=== PATIENT | female | born 1965 | race Asian ===

== ENCOUNTER → 2016-07-21 | Outpatient (CLI) | payer BC ==
--- NOTE | 2016-07-24 12:02 | POLYSOMNOGRAPH REPORT ---
CLINICAL DATA: 51-year-old female with BMI of 41.[address] Hernández and Dr. Mack with hypertension and possible sleep apnea. On the evening of 07/21/2016, a home sleep apnea test was performed using a Powervation type 3 monitor. RECORDING RESULTS: Total recording time was 10 hours. The patient's estimated sleep time and patient monitoring time was 6.9 hours. RESPIRATORY DATA: Mild sleep apnea was documented. The MATEUSZ was 10.9. There were 46 obstructive apneic episodes and 29 hypopneic episodes recorded. The longest respiratory event was 49 seconds. Significant nocturnal hypoxemia was seen. Oxygen greg was 62%. Mean saturation was 96%. Time below 89% was 14 minutes. HEART RATE DATA: Heart rates ranged from 48-68 beats per minute. SNORING DATA: Snoring was recorded throughout the night. BROADCAST OPERATIONS DIRECTOR'S COMMENTS: The patient gave a history of loud snoring and snorting that would awaken her and her at night. Her recorded witnessed apneic episodes lasting 40-50 seconds which were confirmed. She also has fatigue. Her events were clustered primarily in 3 different short episodes, most likely corresponding to REM sleep. IMPRESSION: Mild sleep apnea/hypopnea with an MATEUSZ of 10.9 with severe nocturnal hypoxemia with an oxygen greg as low as 62%. RECOMMENDATIONS: The patient may benefit from a repeat sleep study with CPAP or use of an oral appliance. Clinical correlation is needed. MEGAN
== END | disposition home or self-care (01) ==
LOC: C.NEUR 09:15
PROVIDERS: ATTEND Internal Medicine Pulmonary Disease
DX: G47.30 Sleep apnea, unspecified (principal); R09.02 Hypoxemia

== ENCOUNTER → 2016-08-29 | Outpatient (CLI) | payer BC ==
[2016-08-29 13:26] LABS: THYROID STIMULATING HORMONE 1.14 uIu/ml (0.300-4.500)
[2016-08-29 14:00] LABS: ESTIMATED AVERAGE GLUCOSE 186 mg/dl; HA1C FLAG Normal (Normal)
--- NOTE | 2016-09-05 08:35 | CODING QUERY MEDICAL NECESSITY ---
CQSUPPORTING DIAGNOSIS NEEDED A supporting diagnosis is required for the test/procedure performed on this patient in order for us to be reimbursed by the patient's insurance. Please provide a supporting diagnosis for the following test/procedure listed below next to the test name along with your signature. *If there is no additional diagnosis for this patient that would support the following test/procedure please document that below next to the test/procedure. Test(s)/Procedure(s) that require a supporting diagnosis: DOS 08/29/16 VITAMIN D TEST Provider Signature: Date: Thank you Doris Velez Health Information Management Once completed, please kindly fax back to [phone] For questions please call [phone]
== END | disposition home or self-care (01) ==
LOC: C.LAB1850 11:45
PROVIDERS: ATTEND Family Medicine
DX: E11.65 Type 2 diabetes mellitus with hyperglycemia (principal); N92.6 Irregular menstruation, unspecified; E03.9 Hypothyroidism, unspecified; E11.9 Type 2 diabetes mellitus without complications; E55.9 Vitamin D deficiency, unspecified

== ENCOUNTER → 2016-09-04 | Outpatient (CLI) | payer BC ==
--- NOTE | 2016-09-05 06:38 | PAP/PSG TECHNICIAN REPORT ---
[facility] Furniture Maker Polysomnogram Report Study name: None Report date: 09/05/2016 Study date: 09/04/2016 Referring Physician: El Hernández Pulmonary Name: MORALES BERGMANCristobal Interpreting Physician: Bong Calderon M.D. Date of : 1965 Furniture Maker: Ileana Lopez [facility]. Sex: Female Age: 51 Study Type: PSG PAP Weight: 213 lbs Height: 51 years, Height 5' 0" BMI: 41.59 Medications: ACCU-CHECK SYSTEM, BYSTOLIC 5 MG, HUMALOG KWIKPEN 100 UNI/ML, HUMULIN N KWIKPEN 100 UNIT/ML, LANTUS SOLOSTAR 100 UNIT/ML, LEVOTHYROXINE 50 MCG, MEDROXYPROGESTERONE 10 MG, VIT D3 5000 UNIT Patient History 51 yr-old female here for a new CPAP treatment study. She was found to be positive for GIOVANY via a home sleep study. Her AHI was 14. She chose a Mirage FX Soft edge nasal mask size small from [employer]. The test was started on room air and 4 CMH2O. ETCO2 testing was not utilized during this study. Room 1 Parameters Monitored NPSG: E1-M2, E2-M1, Fp1-M2, Fp2-M1, F3-M2, F4-M2, F4-M1, C3-M2, C4-M2, C4-M1, O1-M2, O2-M2, O2-M1, T3-M2, T4-M1, P3-M2, P4-M1, CHIN1, CHIN2, HR, EKG, Legs, PFLOW, SNOR, FLOW, CFLOW, Tidal Volume, THOR, ABDO, SpO2, PLTH, CPRESS, ETCO2 Wave, ETCO2, pH Sleep Architecture Sleep Stages Time at Lights Off 11:05:22 PM STAGES Time (min.) TST (%) Time at Lights On 5:29:52 AM Wake 26.5 -- Total Recording Time (TRT) 384.50 min. N1 15.5 4 Total Sleep Period (TSP) 371.5 min. N2 211.0 59 Total Sleep Time (TST) 358.0min. N3 47.5 13 Awake Time 26.5 min. REM 84.0 23 Wake after Sleep Onset 13.5 min. Sleep Efficiency (SE) 93 % Sleep Onset Latency (FABIANA) 13.0 min. Number of Stage 1 Shifts None Awakenings 14 Stage Changes 57 Number of REM periods 4 REM 84.0 23 REM Latency 48.0 min. NREM 274.0 77 Body Position Analysis Supine Right Left Side Prone Vertical Total Sleep Time (min.) 130.7 123.0 107.4 230.37 0.0 0.0 Total Sleep Time (%) 36% 34% 30% 64 0% N/A% Total Sleep Time REM (min.) 40.0 17.0 27.0 None 0.0 0.0 Total Sleep Time NREM (min.) 87.6 106.0 80.4 None 0.0 0.0 Intermittent Wake (min.) 3.1 20.3 3.2 None 0.0 0.0 Total Sleep Period (%) 35% None None None None None Arousals Myoclonus (PLM) * Events Count Index Events Count Index Spontaneous 12 2 Events Awake (PLMW) 23 52.1 Respiratory 4 0.8 Events Asleep w/ Arousal (PLMA) 6 1.0 PLM 6 1 Events Asleep w/o Arousal (PLMS) 44 7.4 Snoring 2 0 Total Asleep 50 8.4 Total 24 4 Total 73 11 Respiratory Analysis * CA OA MA CH H RERA Total Count 1 0 0 0 24 4 25 Index 0.2 0.0 0.0 0 4.0 1 4.9 Mean Duration 14.3 0.0 0.0 0.00 16.3 16.0 16.2 Longest Duration 14.3 0.0 0.0 0.00 0.0 16.9 31.4 Respiratory Event Summary Total Supine ~Supine Right Left Prone REM NREM Apneas Count 1 0 1 1 0 N/A 1 0 Index 0.2 0 0 0.5 0.0 N/A 1 0 Hypopneas (4% Desat) Count 24 20 4 2 2 N/A 18 6 Index 4.0 9.4 1 1.0 1.1 N/A 12.9 1.3 Apneas & All Hypopneas Count 25 20 5 3 2 N/A 19 6 Index 4.2 9 1 1 1 N/A 13.6 1.3 Respiratory Events (Hide Splitter+All Hyp+RERA) Count 25 20 9 5 4 N/A 19 6 Index 4.9 9 2 2.4 2.2 N/A 13.6 2.2 Respiratory Related Arousal Count 4 20 5 3 2 N/A 0 5 Index 0.8 0 1 1 1 N/A 0 1 Snoring Analysis Supine Right Left Prone REM NREM Total Snore duration 56.2 min Snores count 767 466 706 N/A 354 1,585 1,939 Snore mean duration 1.7 Sec Snores index 361 227 395 N/A 252.9 347.1 325.0 TST with snoring (%) 15.7% Desaturation Event Summary: Minimum %SpO2 Event Count Mean/Min/Max Duration(sec.) Desaturation Index % Time In Bed > 90 44 24.0 / 5.0 / 59.0 6.9 99.2 86 - 90 0 N/A 0.0 0.7 81 - 85 0 N/A 0.0 0.1 76 - 80 0 N/A 0.0 0.0 71 - 75 0 N/A 0.0 0.0 66 - 70 0 N/A 0.0 0.0 61 - 65 0 N/A 0.0 0.0 56 - 60 0 N/A 0.0 0.0 51 - 55 0 N/A 0.0 0.0 < 50 0 N/A 0.0 0.0 Total REM NREM Awake <50% 0.0 min. 0.0 min. 0.0 min. 0.0 min. 51 - 60% 0.0 min. 0.0 min. 0.0 min. 0.0 min. 61 - 70% 0.0 min. 0.0 min. 0.0 min. 0.0 min. 71 - 80% 0.0 min. 0.0 min. 0.0 min. 0.0 min. 81 - 90% 3.0 min. 2.5 min. 0.4 min. 0.1 min. 91 - 100% 381.5 min. 81.5 min. 273.6 min. 26.4 min. Average 95 95 95 96 Minimum SpO2 81 81 90 90 Desaturation Event Index 6.9 20.7 2.4 9.1 # Desat. Events below 89% 5 5 N/A N/A Time(%) with Saturation below 89% 0.3 0.3 0.0 0.0 Time(min.) with Saturation below 89% 1.1 1.1 0.0 0.0 Time (mins) REM (mins) NREM (mins) % of TST SpO2 Below 90% 12 9 N3 0.4 SpO2 Below 88% 2 0 0 0 Heart Rate Analysis Min (bpm) Max (bpm) Average (bpm) Awake 68 107 90 NREM 63 107 80 REM 58 97 77 Overall 58 107 79 Supplemental O2 Values Minimum O2 level: None Value Start Time End Time Furniture Maker Comments Ms. Bergman slept in the right, left, and supine positions. No cardiac arrhythmias or PLMs noted. No bruxism noted. CPAP was initiated at +4 CMH2O and up-titrated to a level of + CMH2O, Cflex 2. A Mirage FX Soft edge nasal mask size small from [employer] was used during titration She did not wake up to use the restroom during the night. Ms. Bergman stated that she slept a little worse than usual. The final report will be interpreted and signed by a sleep physician. The completed physician report will then be placed in the patient medical record. Therapy Event: Therapy (cm H20) 4 5 6 7 8 Total Time at Pressure (min.) 34.7 100.5 179.9 23.2 46.3 TST at Pressure (min.) 21.2 95.0 176.4 23.2 42.3 # Periods 1 1 1 1 1 Sleep Onset (min.) 13.0 0.0 0.0 0.0 0.0 REM Onset (min.) N/A 26.3 15.8 0.0 0.0 Sleep Efficiency % 61 94 98 100 91 Wakefulness (%) 38.9 5.5 1.9 0.0 8.6 Wakefulness (min.) 13.5 5.5 3.5 0.0 4.0 NREM 1 (%) 7.2 2.0 4.4 0.0 6.5 NREM 1 (min.) 2.5 2.0 8.0 0.0 3.0 NREM 2 (%) 44.6 32.3 70.3 0.0 78.9 NREM 2 (min.) 15.5 32.5 126.5 0.0 36.5 NREM 3 (%) 9.3 43.3 0.4 0.0 0.0 NREM 3 (min.) 3.2 43.5 0.8 0.0 0.0 REM (%) 0.0 16.9 22.8 100.0 6.0 REM (min.) 0.0 17.0 41.1 23.2 2.8 # Arousals 2 6 11 0 5 Arousal Index 5.7 3.8 3.7 0.0 7.1 # Snore 112 718 882 206 21 Snore Index 316.7 453.5 300.1 533.6 29.8 AHI 0.0 1.9 3.7 28.5 0.0 AHI Supine N/A N/A 5.3 28.5 0.0 AHI Non-Supine 0.0 1.9 1.6 N/A 0.0 NREM AHI 0.0 1.5 1.8 N/A 0.0 REM AHI N/A 3.5 10.2 28.5 0.0 RDI 0.0 3.2 4.4 28.5 0.0 # Obstructive 0 0 0 0 0 # Central Ap 0 1 0 0 0 # Mixed 0 0 0 0 0 # Hypopneas 0 2 11 11 0 RERAS 0 2 2 0 0 Total Respiratory Events 0 5 13 11 0 Time Below SpO2 89.00% (min.) 0.0 0.2 0.2 0.7 0.0 Mean NREM SpO2 (%) 95 95 95 N/A 96 Mean REM SpO2 (%) N/A 94 96 94 97 Mean Sleep SpO2 (%) 95 94 95 94 96 Min NREM SpO2 (%) 93 91 90 N/A 90 Min REM SpO2 (%) N/A 81 84 84 96 Position Supine (min.) 0.0 0.0 101.7 23.2 2.8 Position Non-supine (min.) 21.2 95.0 74.7 0.0 39.5 LM Index Sleep 11.3 7.6 4.4 20.7 18.5 LM Index NREM 11.3 7.7 5.8 N/A 19.7 LM Index REM N/A 7.1 0.0 20.7 0.0 Mean Heart Rate (bpm) 84 84 78 73 76 Min Heart Rate (bpm) 73 65 60 58 61
--- NOTE | 2016-09-09 10:22 | POLYSOMNOGRAPH REPORT ---
CLINICAL DATA: A 51-year-old female with BMI of 41.[address] Hernández and Dr. Flaherty for a CPAP titration study. She had mild sleep apnea documented on a home sleep study with an AHI of 14. SLEEP ARCHITECTURE: Total sleep period was 371.5 minutes. Total sleep time was 358 minutes divided between 274 minutes of non-REM sleep and 84 minutes of REM sleep. Sleep onset latency was 13 minutes. REM latency was 48 minutes. Sleep efficiency was 93%. Wake after sleep onset was 13.5 minutes. Sleep consisted of stage N1 4%, N2 59%, N3 13%, REM 23%. AROUSAL DATA: Twenty four arousals were recorded for an index of 4 per hour. PLM DATA: Fifty limb movements during sleep were noted for an index of 8.4 per hour with arousal index of 1 per hour. RESPIRATORY DATA: The AHI was 4.2. There was 1 central apneic episode, 14.3 seconds in duration. There were 24 hypopneic episodes. The mean duration of hypopnea was 16.3 seconds. OXIMETRY DATA: Nocturnal hypoxemia was seen. Oxygen greg was 81% during REM. The mean saturation was 95%. Time below 88% was 2 minutes. EKG: Heart rates ranged from 58-107 beats per minute. No arrhythmias were noted. 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 She was begun on CPAP 4 cm water pressure and was titrated up to a final pressure setting of 8 cm of water pressure. At 8 cm of water pressure, C-Flex 2 the patient slept for 42.3 minutes with an AHI of 0. IMPRESSION: Mild sleep apnea/hypopnea corrected with CPAP 8 cm of water pressure, C-flex setting 2, Mirage FX soft edge nasal mask size small from [employer]. RECOMMENDATIONS: The patient should be started on the above noted treatment regimen and see back in followup within 90 days to document efficacy and compliance. [facility]
== END | disposition home or self-care (01) ==
LOC: C.NEUR 20:00
PROVIDERS: ATTEND Internal Medicine Pulmonary Disease
DX: G47.33 Obstructive sleep apnea (adult) (pediatric) (principal); E66.9 Obesity, unspecified

== ENCOUNTER → 2016-09-15 | Outpatient (CLI) | payer BC ==
[~2016-09-15] VITALS: Ht 152.4 cm; Wt 94.0 kg
[2016-09-15 15:13] VITALS: BP 139/82; PULSE 109; Ht 152.4 cm; Wt 94.0 kg
== END | disposition home or self-care (01) ==
LOC: C.NEUR 14:11
PROVIDERS: ATTEND Physician Assistant
DX: G47.30 Sleep apnea, unspecified (principal)

== ENCOUNTER → 2016-11-25 | Outpatient (CLI) | payer BC | END | disposition home or self-care (01) | LOC: C.PATHSPEC 15:28 | PROVIDERS: ATTEND Obstetrics & Gynecology | DX: N93.9 Abnormal uterine and vaginal bleeding, unspecified (principal) ==

== ENCOUNTER → 2016-12-01 | Outpatient (CLI) | payer BC ==
[~2016-12-01] VITALS: Ht 154.9 cm; Wt 90.1 kg
[2016-12-01 14:47] VITALS: BP 129/82; PULSE 83; Ht 154.9 cm; Wt 90.1 kg
== END | disposition home or self-care (01) ==
LOC: C.NEUR 13:44
PROVIDERS: ATTEND Physician Assistant
DX: G47.33 Obstructive sleep apnea (adult) (pediatric) (principal)

== ENCOUNTER → 2017-01-21 | Outpatient (CLI) | payer BC ==
[2017-01-21 10:58] LABS: HEMATOCRIT 39.7 % (37-47); URINE APPEARANCE CLEAR (CLEAR); URINE BILIRUBIN NEG (NEG); URINE COLOR YELLOW; URINE NITRITE NEG (NEG); URINE SPECIFIC GRAVITY 1.015 (1.000-1.030); UROBILINOGEN NEG (NEG)
[2017-01-21 11:01] LABS: PREG INTERNAL NEGATIVE QC NEG CLEAR BACKGROUND; PREG INTERNAL POSITIVE QC POS CONTROL LINE
[2017-01-21 11:02] LABS: MANUAL MICROSCOPIC REQUIRED? NO; REVIEW REQ? NO
[2017-01-21 11:06] LABS: ESTIMATED AVERAGE GLUCOSE 154 mg/dl; HA1C FLAG Normal (Normal)
[2017-01-21 11:25] LABS: URINE TOTAL PROTEIN < 5.0 mg/dl (0-11.9)
[2017-01-21 11:28] LABS: ALT/SGPT 36 U/L (12-78); AST/SGOT 13 U/L (15-37); BLOOD UREA NITROGEN 7 mg/dl (7-18); BUN/CREATININE RATIO 9.5 (10-20); CALCIUM 9.1 mg/dl (8.5-10.1); CARBON DIOXIDE 30 mmol/L (21-32); CHLORIDE 107 mmol/L (98-107); CREATININE 0.73 mg/dl (0.60-1.20); GLUCOSE 121 mg/dl (70-99); POTASSIUM 4.4 mmol/L (3.5-5.1); SODIUM 139 mmol/L (136-145)
[2017-01-21 11:33] LABS: ALKALINE PHOSPHATASE 74 U/L (45-117); CHOLESTEROL 152 mg/dl (0-200); CHOLESTEROL/HDL RATIO 4.9; HDL CHOLESTEROL 31 mg/dl; LDL CHOLESTEROL CALCULATED 103 mg/dl; PHOSPHORUS 3.7 mg/dl (2.5-4.9); TRIGLYCERIDES 91 mg/dl (0-150); VERY LOW DENSITY LIPOPROT CALC 18 mg/dl
[2017-01-22 20:14] LABS: RAPID PLASMA REAGIN NONREACTIVE (NONREACT)
[2017-01-23 10:40] LABS: QUANTIFERON NIL 0.04 IU/ML
== END | disposition home or self-care (01) ==
LOC: C.RAD1850 08:50
PROVIDERS: ATTEND Nurse Practitioner Adult Health
DX: Z71.89 Other specified counseling (principal); E11.65 Type 2 diabetes mellitus with hyperglycemia; I10 Essential (primary) hypertension; R60.9 Edema, unspecified; R53.83 Other fatigue

== ENCOUNTER → 2017-01-22 | Outpatient (CLI) | payer BC ==
--- NOTE | 2017-01-22 10:02 | DIAGNOSTIC IMAGING REPORT ---
TWO VIEW CHEST CLINICAL HISTORY: Traveling advice encounter. FINDINGS: PA and lateral chest radiographs are compared to study dated 10/27/2013. The cardiomediastinal silhouette is unremarkable. The lungs and pleural spaces are clear. There is no pneumothorax. The bony thorax appears intact. IMPRESSION: No active disease in the chest. Electronically signed by: Yaniv Diane M.D. 01/22/2017 10:00 AM Dictated Date/Time: 01/22/2017 9:58 AM
[2017-02-03 07:34] LABS: O&P SOURCE OTHER-STOOL
== END | disposition home or self-care (01) ==
LOC: C.RAD1850 09:44
PROVIDERS: ATTEND Nurse Practitioner Adult Health
DX: Z71.89 Other specified counseling (principal)

== ENCOUNTER → 2017-02-09 | Outpatient (CLI) | payer BC | END | disposition home or self-care (01) | LOC: C.LAB1850 10:02 | PROVIDERS: ATTEND Nurse Practitioner Adult Health | DX: Z71.89 Other specified counseling (principal); E55.9 Vitamin D deficiency, unspecified ==

== ENCOUNTER → 2018-01-20 | Outpatient (CLI) | payer BC ==
[2018-01-20 15:09] LABS: BLOOD UREA NITROGEN 9 mg/dl (7-18); CALCIUM 9.3 mg/dl (8.5-10.1); CARBON DIOXIDE 25 mmol/L (21-32); CREATININE 0.78 mg/dl (0.60-1.20); GLUCOSE 99 mg/dl (70-99); PHOSPHORUS 3.6 mg/dl (2.5-4.9); POTASSIUM 3.9 mmol/L (3.5-5.1); SODIUM 137 mmol/L (136-145)
[2018-01-21 05:59] LABS: HEMOGLOBIN A1C 7.5 % (4.5-5.6)
== END | disposition home or self-care (01) ==
LOC: C.LAB1850 13:38
PROVIDERS: ATTEND Internal Medicine Nephrology
DX: E03.9 Hypothyroidism, unspecified (principal); E11.9 Type 2 diabetes mellitus without complications; Z79.4 Long term (current) use of insulin

== ENCOUNTER → 2018-01-21 | Outpatient (CLI) | payer BC ==
[~2018-01-21] VITALS: Ht 152.4 cm; Wt 85.9 kg
[2018-01-21 14:22] VITALS: BP 148/83; PULSE 92; Ht 152.4 cm; Wt 85.9 kg
== END | disposition home or self-care (01) ==
LOC: C.NEUR 13:20
PROVIDERS: ATTEND Physician Assistant
DX: G47.33 Obstructive sleep apnea (adult) (pediatric) (principal)